=== PATIENT | female | born 1935 | race Caucasian/White ===

== ENCOUNTER 2019-07-13 12:14 | Inpatient (IN) | END 2019-07-14 13:10 | disposition home or self-care (01) | DRG 206 | DX: M94.0 Chondrocostal junction syndrome [Tietze] (principal); K21.9 Gastro-esophageal reflux disease without esophagitis; K44.9 Diaphragmatic hernia without obstruction or gangrene; J43.9 Emphysema, unspecified; D75.89 Other specified diseases of blood and blood-forming organs; I77.1 Stricture of artery; R51 Headache; F41.9 Anxiety disorder, unspecified; K57.30 Diverticulosis of large intestine without perforation or abscess without bleeding; N20.0 Calculus of kidney; I10 Essential (primary) hypertension; Z87.891 Personal history of nicotine dependence; Z90.49 Acquired absence of other specified parts of digestive tract; Z96.653 Presence of artificial knee joint, bilateral; Z79.899 Other long term (current) drug therapy; Z91.14 Patient's other noncompliance with medication regimen; G31.9 Degenerative disease of nervous system, unspecified; M48.56XD Collapsed vertebra, not elsewhere classified, lumbar region, subsequent encounter for fracture with routine healing; I70.8 Atherosclerosis of other arteries ==